=== PATIENT | male | born 1970 | race Caucasian/White ===

== ENCOUNTER → 2016-11-07 | Outpatient (CLI) | payer MEDICAID ==
--- NOTE | 2016-11-07 16:33 | US ---
Ultrasound Extremity Nonvascular Indication: Right groin pain, with mild bulging. Evaluate for hernia. Technique: Banks-scale, color, and cine imaging of the right groin. Findings: There is a small direct hernia present with provocative maneuvers, which appears easily re ducible medial to the epigastric vessels. Impression: Small direct hernia, with a wide neck. This is worse with provocative maneuvers.
== END ==
LOC: BRMIMAGING 14:43
PROVIDERS: ATTEND Registered Nurse
DX: K40.90 Unilateral inguinal hernia, without obstruction or gangrene, not specified as recurrent (principal)
CPT/HCPCS: 76882-PO